=== PATIENT | male | born 1950 | race Caucasian/White ===

== ENCOUNTER 2017-02-11 06:02 | Inpatient (IN) | payer MEDICARE, OTHER ==
[~2017-02-11 06:02] MED LIST: IBUPROFEN200 M2 PO; MULTIVITAMINS1 EAC6 PO
[2017-02-12 05:48] LABS: BASO % 0.1 % (0-2); EOS % 0.2 % (0-7); HCT-HEMATOCRIT 36.4 % (36.0-53.5); HGB-HEMOGLOBIN 12.5 gm/dl (13.5-17.0); IMMATURE GRANULOCYTES ABSOLUTE 0.02 tho/cmm (0-0.03); IMMATURE GRANULOCYTES PERCENT 0.2 % (0-0.3); LYMPH % 15.6 % (20-45); LYMPH ABSOLUTE COUNT 1.7 tho/cmm (0.8-4.5); MCH (MEAN CORPUSCULAR HGB) 30.9 pg (28.0-32.0); MCHC MEAN CORPUSCULAR HGB CONC 34.3 % (32.0-36.0); MCV (MEAN CELL VOLUME) 90.1 fl (82.0-96.0); MEAN PLATELET VOLUME 8.8 cmc (9.4-12.4); MONO % 12.7 % (0-12); MONOCYTE ABSOLUTE COUNT 1.4 tho/cmm (0.0-1.2); NEUTROPHIL ABSOLUTE COUNT 7.8 tho/cmm (1.6-8.0); NEUTROPHIL-AUTOMATED 7.8 tho/cmm (1.6-8.0); NEUTROPHILS % 71.2 % (40-80); PLATELET COUNT 211 tho/cmm (150-450); RED BLOOD COUNT 4.04 mil/cmm (4.40-5.70)
[2017-02-12] MEDS ORDERED: ASPIRIN81 M1 PO (11:14)
[2017-02-12] MEDS ORDERED: ROXICODONE5 M2 PO (11:16)
[2017-02-12] MEDS ORDERED: ULTRAM50 M1 PO (11:16)
[2017-02-12] MEDS ORDERED: TYLENOL325 M2 PO (11:17)
[2017-02-12] MEDS ORDERED: SENNA-S TABLET1 EAC3 PO (11:18)
[2017-02-12] MEDS ORDERED: MOBIC15 M2 PO (11:19)
[2017-02-12] MEDS ORDERED: MIRALAX17 G2 PO (11:19)
== END 2017-02-12 14:11 | DRG 470 ==
LOC: SHSB 06:02 → ORE 07:54 → PACU 09:40 → 5EA 10:15
PROVIDERS: ADMIT Orthopaedic Surgery Foot and Ankle Surgery
PROC: 0SR904A Replacement of Right Hip Joint with Ceramic on Polyethylene Synthetic Substitute, Uncemented, Open Approach (ICD-10-PCS; principal; 2017-02-11)
DX: M16.11 Unilateral primary osteoarthritis, right hip (principal); Z96.642 Presence of left artificial hip joint; E78.5 Hyperlipidemia, unspecified; Z85.46 Personal history of malignant neoplasm of prostate; E78.00 Pure hypercholesterolemia, unspecified; M17.0 Bilateral primary osteoarthritis of knee; K59.00 Constipation, unspecified
CPT/HCPCS: C1776; J0171; J0690; J1885; J2270; J2795